=== PATIENT | female | born 1970 | race African-American/Black ===

== ENCOUNTER 2017-12-22 11:50 | Inpatient (IN) ==
--- NOTE | 2017-12-22 12:31 | ED ---
HPI General Chief Complaint: Chest Pain Stated Complaint: Chest Pain Time Seen by Provider: 12/22/17 12:13 History of Present Illness HPI narrative: The patient was seen and examined in the presence of the nurse. This patient complains of chest pain. Location is left center chest. Described as a burning and aching and a pressure. Duration is 30 minutes. Severity is moderate. No alleviating factors. No exacerbating factors. She has history of A. fib and diabetes, takes no blood thinners. Complete Quality Measures for STEMI Alert Patients Related Data Home Medications Medication Instructions Recorded Confirmed aspirin 81 mg PO DAILY 12/22/17 12/22/17 carbamazepine [Tegretol] 200 mg PO BID 12/22/17 12/22/17 insulin glargine [Lantus U-100 22 unit SUB-Q DAILY 12/22/17 12/22/17 Insulin] metformin 1,000 mg PO BID 12/22/17 12/22/17 phenytoin sodium extended 60 mg PO BID 12/22/17 12/22/17 [Dilantin] verapamil 180 mg PO DAILY 12/22/17 12/22/17 Allergies Allergy/AdvReac Type Severity Reaction Status Date / Time haloperidol [From Haldol] Allergy Difficulty Verified 12/22/17 12:04 Breathing Review of Systems ROS: all other systems reviewed are negative [facility] Medical History Medical History A-fib (Acute) Asthma (Acute) Bipolar 1 disorder (Acute) COPD (chronic obstructive pulmonary disease) (Acute) Diabetes (Acute) Hypertension (Acute) Schizophrenia (Acute) Seizures (Acute) Social History Social History Substance History: Active Abuse Smoking Status: Current every day smoker Tobacco Type: Cigarettes How Often Do You Have a Drink Containing Alcohol: Never Recent Travel in [facility] within the Last 8 Weeks: No Recent Out of Country Travel within the Last 8 Weeks: No Substance Abuse Detail Crack/Cocaine: Substance Use Status: Active Route Used Substance Abuse: Inhalation Substance Frequency: occasional Reason for Use: Curiosity Immunization History Tetanus Immunization: <5 Years Exam Narrative Exam Narrative: GENERAL: Morbidly obese , well-developed patient in no apparent distress. SKIN: Focused skin assessment reveals no rash and nodules. Skin is Warm and dry. HEAD: Atraumatic. Normocephalic. EYES: Pupils equal and round. No scleral icterus. No injection or drainage. ENT: No nasal bleeding or discharge. Mucous membranes pink and moist. NECK: Trachea midline. No JVD. CARDIOVASCULAR: Regular rate and rhythm. No murmur appreciated. RESPIRATORY: No accessory muscle use. Clear to auscultation. Breath sounds equal bilaterally. GASTROINTESTINAL: Abdomen soft, non-tender, nondistended. Hepatic and splenic margins not palpable. MUSCULOSKELETAL: No obvious deformities. No clubbing. No cyanosis. No edema. NEUROLOGICAL: Awake and alert. No obvious cranial nerve deficits. Motor grossly within normal limits. Normal speech. PSYCHIATRIC: Appropriate mood and affect; insight and judgment normal. Course Initial Documented Vital Signs Temperature 98.5 F 12/22/17 11:58 Pulse Rate 130 H 12/22/17 11:58 Respiratory Rate 24 12/22/17 11:58 Pulse Oximetry 97 12/22/17 11:58 Last Documented Vital Signs Temperature 98.5 F 12/22/17 11:58 Pulse Rate 123 H 12/22/17 13:48 Respiratory Rate 22 12/22/17 13:48 Blood Pressure 155/66 H 12/22/17 13:48 Pulse Oximetry 98 12/22/17 13:48 Critical Care Time Critical Care Time: Yes Total Critical Care Time: 35 Attestation: Aggregate critical care time was 35 minutes. Time to perform other separately billable procedures was not included in the critical care time. My time did not include minutes spent treating any other patients simultaneously or on activities that did not directly contribute to the patient's treatment. The services I provided to this patient were to treat and/or prevent clinically significant deterioration that could result in: Cardiopulmonary arrest, cardiac arrhythmia, myocardial damage I provided critical care services requiring my management, as noted below: Chart data review, documentation time, medication orders and management, vital sign assessments/reviewing monitor data, ordering and reviewing lab tests, ordering and interpreting/reviewing x-rays and diagnostic studies, care of the patient and discussion of the patient with the admitting physicians. Medical Decision Making MDM Narrative Medical decision making narrative: IV placed and labs sent. Patient arrives in A. fib with RVR. I gave an additional 20 mg IV Cardizem dose for rate control On recheck it is still in the 130s and has not helped I gave a second IV Cardizem dose of 20 mg I gave her an aspirin 162 mg Reviewed her EKG which shows A. fib with RVR but no acute ST elevation. I reviewed her chest x-ray and her troponin is normal. CK is 300 She denies coronary artery disease. She does have history of A. fib. She has multiple risk factors including obesity and hypertension and smoking. Patient will be a telemetry admission to the hospitalist. I have placed a call to them to discuss. She will need chest pain evaluation as well as rate control with A. fib with RVR. Medical Records Medical records reviewed: Yes I reviewed the patient's medical records. Lab Data Lab results reviewed: Yes I reviewed the patient's lab results. Result diagrams: 12/22/17 12:31 12/22/17 12:31 Lab Results 12/22/17 12/22/17 12/22/17 Range/Units 12:31 12:31 12:31 WBC 7.4 (4.0-11.0) th/mm3 RBC 4.32 (4.00-5.30) mil/mm3 Hgb 12.9 (11.6-15.3) gm/dL Hct 38.4 (35.0-46.0) % MCV 88.9 (80.0-100.0) fL MCH 29.9 (27.0-34.0) pg MCHC 33.6 (32.0-36.0) % RDW 13.6 (11.6-17.2) % Plt Count 278 (150-450) th/mm3 MPV 7.9 (7.0-11.0) fL Neut % (Auto) 49.1 (16.0-70.0) % Lymph % (Auto) 36.0 (9.0-44.0) % Mingo % (Auto) 10.3 H (0.0-8.0) % Eos % (Auto) 3.5 (0.0-4.0) % Baso % (Auto) 1.1 (0.0-2.0) % Neut # (Auto) 3.6 (1.8-7.7) th/mm3 Lymph # (Auto) 2.7 (1.0-4.8) th/mm3 Mingo # (Auto) 0.8 (0.0-0.9) th/mm3 Eos # (Auto) 0.3 (0.0-0.4) th/mm3 Baso # (Auto) 0.1 (0.0-0.2) th/mm3 WBC Differential . Differential Comment Auto diff final PT 10.0 (9.8-11.6) sec INR 1.0 Ratio APTT 25.4 (24.3-30.1) sec Sodium 140 (136-145) meq/L Potassium 4.2 (3.5-5.1) meq/L Chloride 108 H (98-107) meq/L Carbon Dioxide 23.1 (21.0-32.0) meq/L Anion Gap 9 (5-15) meq/L BUN 22 H (7-18) mg/dL Creatinine 1.23 H (0.50-1.00) mg/dL Estimated GFR 57 L (>89) mL/min POC Glucose (68-110) mg/dl Random Glucose 231 H (74-106) mg/dL Calcium 8.4 L (8.5-10.1) mg/dL Total Creatine Kinase (26-192) U/L CK-MB (CK-2) (0.5-3.6) ng/mL CK-MB (CK-2) % (0.0-4.0) % Troponin I (0.02-0.05) ng/mL 12/22/17 12/22/17 Range/Units 12:31 12:37 WBC (4.0-11.0) th/mm3 RBC (4.00-5.30) mil/mm3 Hgb (11.6-15.3) gm/dL Hct (35.0-46.0) % MCV (80.0-100.0) fL MCH (27.0-34.0) pg MCHC (32.0-36.0) % RDW (11.6-17.2) % Plt Count (150-450) th/mm3 MPV (7.0-11.0) fL Neut % (Auto) (16.0-70.0) % Lymph % (Auto) (9.0-44.0) % Mingo % (Auto) (0.0-8.0) % Eos % (Auto) (0.0-4.0) % Baso % (Auto) (0.0-2.0) % Neut # (Auto) (1.8-7.7) th/mm3 Lymph # (Auto) (1.0-4.8) th/mm3 Mingo # (Auto) (0.0-0.9) th/mm3 Eos # (Auto) (0.0-0.4) th/mm3 Baso # (Auto) (0.0-0.2) th/mm3 WBC Differential Differential Comment PT (9.8-11.6) sec INR Ratio APTT (24.3-30.1) sec Sodium (136-145) meq/L Potassium (3.5-5.1) meq/L Chloride (98-107) meq/L Carbon Dioxide (21.0-32.0) meq/L Anion Gap (5-15) meq/L BUN (7-18) mg/dL Creatinine (0.50-1.00) mg/dL Estimated GFR (>89) mL/min POC Glucose 228 H (68-110) mg/dl Random Glucose (74-106) mg/dL Calcium (8.5-10.1) mg/dL Total Creatine Kinase 300 H (26-192) U/L CK-MB (CK-2) 2.2 (0.5-3.6) ng/mL CK-MB (CK-2) % 0.7 (0.0-4.0) % Troponin I Less than 0.02 L (0.02-0.05) ng/mL Imaging Data Radiologist's impression: Chest X-Ray 12/22/17 12:27 CONCLUSION: No acute cardiopulmonary disease Discharge Plan Discharge Disposition Patient Disposition: 30 Still Patient Discharge Details Diagnosis: Chest pain in adult, Paroxysmal atrial fibrillation with rapid ventricular response Physicians Team ED Provider: Branden Rivera Primary Care Provider: UNKNOWN, Rxs /Orders / Referrals /Forms Prescriptions: No Action insulin glargine [Lantus U-100 Insulin] 100 unit/mL Solution 22 unit SUB-Q DAILY RF: 0 verapamil 180 mg Tablet Extended Release 180 mg PO DAILY RF: 0 carbamazepine [Tegretol] 200 mg Tablet 200 mg PO BID RF: 0 metformin 1,000 mg Tablet 1,000 mg PO BID RF: 0 aspirin 81 mg Tablet,Chewable 81 mg PO DAILY RF: 0 phenytoin sodium extended [Dilantin] 30 mg Capsule 60 mg PO BID RF: 0 Discharge Instructions Patient Printed Instructions: Chest Pain (ED) Discharge Interventions Interventions: Vital Signs Last Done: 12/22/17 12:11 Status ED Status: With Doctor
[2017-12-22 12:51] LABS: Baso # (Auto) 0.1 th/mm3 (0.0-0.2); Baso % (Auto) 1.1 % (0.0-2.0); Eos # (Auto) 0.3 th/mm3 (0.0-0.4); Eos % (Auto) 3.5 % (0.0-4.0); Hematocrit 38.4 % (35.0-46.0); Hemoglobin 12.9 gm/dL (11.6-15.3); Lymph # (Auto) 2.7 th/mm3 (1.0-4.8); Mean Corpuscular HGB Conc 33.6 % (32.0-36.0); Mean Corpuscular Hemoglobin 29.9 pg (27.0-34.0); Mean Corpuscular Volume 88.9 fL (80.0-100.0); Mean Platelet Volume 7.9 fL (7.0-11.0); Mono # (Auto) 0.8 th/mm3 (0.0-0.9); Mono % (Auto) 10.3 % (0.0-8.0); Neut # (Auto) 3.6 th/mm3 (1.8-7.7); Neut % (Auto) 49.1 % (16.0-70.0); Platelet Count 278 th/mm3 (150-450); Red Blood Count 4.32 mil/mm3 (4.00-5.30); Red Cell Distribution Width 13.6 % (11.6-17.2); White Blood Count 7.4 th/mm3 (4.0-11.0)
--- NOTE | 2017-12-22 12:56 | XR ---
EXAM DATE: 12/22/2017 12:52 PM EDT AGE/SEX: 47 years / Female INDICATIONS: Left sided chest pain and shortness of breath. CLINICAL DATA: This is the patient's initial encounter. Patient reports that signs and symptoms have been present for 1 day and indicates a pain score of 6/10. MEDICAL/SURGICAL HISTORY: Hypertension. Asthma. Chronic obstructive pulmonary disease. AFIB. Seizures. None. COMPARISON: No prior exams available for comparison. FINDINGS: A single AP view of the chest demonstrates the lungs to be symmetrically aerated without evidence of mass, infiltrate or effusion. The cardiomediastinal contours are unremarkable. Osseous structures a re intact. CONCLUSION: No acute cardiopulmonary disease Electronically signed by: Melo Best MD 12/22/2017 12:55 PM EDT
[2017-12-22 13:08] LABS: Activated Partial Thrombo Time 25.4 sec (24.3-30.1)
[2017-12-22 13:12] LABS: Calcium 8.4 mg/dL (8.5-10.1); Carbon Dioxide 23.1 meq/L (21.0-32.0); Potassium 4.2 meq/L (3.5-5.1)
[2017-12-22 13:16] LABS: Creatine Kinase 300 U/L (26-192)
[2017-12-22 13:28] LABS: CKMB Percent 0.7 % (0.0-4.0); Creatine Kinase MB 2.2 ng/mL (0.5-3.6)
[2017-12-22] MEDS ORDERED: Temazepam 15 MG Capsule PO PRN (16:30)
[2017-12-22] MEDS ORDERED: Bisacodyl 10 MG Supp RECTAL PRN (16:30)
[2017-12-22] MEDS ORDERED: Verapamil 120 MG Tablet PO SCH (17:00)
[2017-12-22] MEDS ORDERED: Dextrose 50% in Water 50 ML Vial IV.PUSH PRN (17:37)
[2017-12-22] MEDS ORDERED: Verapamil 120 MG Tablet PO ONE (17:50)
--- NOTE | 2017-12-22 17:54 | P.HPIM ---
History of Present Illness Primary Care Physician: UNKNOWN History of Present Illness: 47-year-old female with a history of atrial fibrillation, COPD, schizophrenia, diabetes who presents with intermittent burning nonradiating substernal chest pain since 11 AM, sometimes worse with a deep breath. She also reports shortness of breath since 11 AM. Patient says she has been stranded in [facility] for the past 5 days after her friend was arrested and got her car impounded. She has been without her medications including verapamil, and has been living outside of a gas station, eating from garbage can. She does report smoking a cigarette last night that smelled like cocaine. Patient is oriented 3, however says she knows nobody in the [facility] area. Get back to [facility] Inpatient Certification: I certify that the inpatient services were ordered in accordance with Medicare regulations governing the order. 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 - Medical History Medical History: Medical History (Last Updated 12/22/17 @ 17:43 by Murali Grimes MD) A-fib Asthma Bipolar 1 disorder COPD (chronic obstructive pulmonary disease) Diabetes Hypertension No significant past surgical history Schizophrenia Seizures - Family History Family History: Family History (Last Updated 12/22/17 @ 17:43 by Murali Grimes MD) Mother CAD (coronary artery disease) Father CAD (coronary artery disease) - Tobacco History Tobacco Use In Past 30 Days: Yes Smoking Status: Current every day smoker Tobacco Type: Cigarettes - Alcohol History How Often Do You Have a Drink Containing Alcohol: Never - Substance Use History Substance History: Active Abuse - Substance Use Type Crack/Cocaine Status: Active Route Used: Inhalation Frequency: occasional Reason for Use: Curiosity - Travel History Recent Travel in the [place] Within the Last 8 Weeks: No Recent Travel Out of the Country Within the Last 8 Weeks: No - Immunization History Tetanus Immunization: <5 Years Medications and Allergies Active Medications: Active Medications Al Hydroxide/Mg Hydroxide (Milk Of Magnesia Liq) 30 ml PO Q12H PRN PRN Reason: Mild Constipation Aspirin (Aspirin Chew) 81 mg PO DAILY [facility] Bisacodyl (Dulcolax Supp) 10 mg RECTAL DAILY PRN PRN Reason: SEVERE CONSITIPATION Carbamazepine (Tegretol) 200 mg PO BID [facility] Lactulose (Lactulose Liq) 30 ml PO DAILY PRN PRN Reason: SEVERE CONSITIPATION Phenytoin Sodium (Dilantin) 60 mg PO BID [facility] Sennosides (Senokot) 17.2 mg PO Q12H PRN PRN Reason: Moderate Constipation Sodium Chloride (Ns Flush) 2 ml IV.FLUSH UNSCH PRN PRN Reason: FLUSH AFTER USING IV ACCESS Temazepam (Restoril) 15 mg PO HS PRN PRN Reason: INSOMNIA Verapamil HCl (Isoptin) 120 mg PO TID [facility] Allergies Allergy/AdvReac Type Severity Reaction Status Date / Time haloperidol [From Haldol] Allergy Difficulty Verified 12/22/17 12:04 Breathing Home Medications Medication Instructions Recorded Confirmed Type aspirin 81 mg PO DAILY 12/22/17 12/22/17 History carbamazepine [Tegretol] 200 mg PO BID 12/22/17 12/22/17 History insulin glargine [Lantus U-100 22 unit SUB-Q DAILY 12/22/17 12/22/17 History Insulin] metformin 1,000 mg PO BID 12/22/17 12/22/17 History phenytoin sodium extended 60 mg PO BID 12/22/17 12/22/17 History [Dilantin] verapamil 180 mg PO DAILY 12/22/17 12/22/17 History Exam Vital signs: Vital Signs 12/22/17 11:58 12/22/17 12:11 12/22/17 12:44 Temperature 98.5 F Pulse Rate 130 H Respiratory Rate 24 Blood Pressure 138/73 Pulse Oximetry 97 97 12/22/17 13:48 12/22/17 16:04 Temperature Pulse Rate 123 H 118 H Respiratory Rate 22 18 Blood Pressure 155/66 H 132/88 Pulse Oximetry 98 98 Intake & Output 12/21/17 12/22/17 12/22/17 18:59 06:59 18:59 Weight 136.078 kg Narrative: GENERAL: Patient sitting up on edge of bed. Appears comfortable. She is alert and oriented 3. SKIN: Warm and dry. HEAD: Atraumatic. Normocephalic. EYES: Pupils equal and round. No scleral icterus. No injection or drainage. ENT: No nasal bleeding or discharge. Mucous membranes pink and moist. NECK: Trachea midline. No JVD. CARDIOVASCULAR: Tachycardic, irregularly irregular. No murmurs, rubs, gallops, clicks RESPIRATORY: No accessory muscle use. Clear to auscultation. Breath sounds equal bilaterally. GASTROINTESTINAL: Abdomen soft, non-tender, nondistended. Hepatic and splenic margins not palpable. MUSCULOSKELETAL: Extremities without clubbing, cyanosis, or edema. No obvious deformities. NEUROLOGICAL: Awake and alert. No obvious cranial nerve deficits. Motor grossly within normal limits. Five out of 5 muscle strength in the arms and legs. Normal speech. PSYCHIATRIC: Appropriate mood and affect; despite history of schizophrenia, insight and judgment normal. Results - Labs CBC & Chem 7: 12/22/17 12:31 12/22/17 12:31 Labs: Short CBC 12/22/17 Range/Units 12:31 WBC 7.4 (4.0-11.0) th/mm3 Hgb 12.9 (11.6-15.3) gm/dL Hct 38.4 (35.0-46.0) % Plt Count 278 (150-450) th/mm3 BMP 12/22/17 12:31 Sodium 140 Potassium 4.2 Chloride 108 H Carbon Dioxide 23.1 BUN 22 H Creatinine 1.23 H Calcium 8.4 L Cardiac Enzymes 12/22/17 Range/Units 12:31 Total Creatine Kinase 300 H (26-192) U/L CK-MB (CK-2) 2.2 (0.5-3.6) ng/mL Troponin I Less than 0.02 L (0.02-0.05) ng/mL - Imaging Impressions Chest X-Ray 12/22/17 12:27 CONCLUSION: No acute cardiopulmonary disease Caprini VTE Risk Assessment Caprini VTE Risk Assessment: No/Low Risk (score <= 1) Caprini Risk Assessment Model: Point Value = 1 Point Value = 2 Point Value = 3 Point Value = 5 Age 41-60 Minor surgery BMI > 25 kg/m2 Swollen legs Varicose veins or History of unexplained or recurrent spontaneous Oral contraceptives or hormone replacement Sepsis (< 1 month) Serious lung disease, including pneumonia (< 1 month) Abnormal pulmonary function Acute myocardial infarction Congestive heart failure (< 1 month) History of inflammatory bowel disease Medical patient at bed rest Age 61-74 Arthroscopic surgery Major open surgery (> 45 min) Laparoscopic surgery (> 45 min) Malignancy Confined to bed (> 72 hours) Immobilizing plaster cast Central venous access Age >= 75 History of VTE Family history of VTE Factor V Leiden Prothrombin [id number] Lupus anticoagulant Anticardiolipin antibodies Elevated serum homocysteine Heparin-induced thrombocytopenia Other congenital or acquired thrombophilia Stroke (< 1 month) Elective arthroplasty Hip, pelvis, or leg fracture Acute spinal cord injury (< 1 month) Prophylaxis Regimen: Total Risk Factor Score Risk Level Prophylaxis Regimen 0-1 Low Early ambulation 2 Moderate Order ONE of the following: *Sequential Compression Device (SCD) *Heparin 5000 units SQ BID 3-4 Higher Order ONE of the following medications: *Heparin 5000 units SQ TID *Enoxaparin/Lovenox 40 mg SQ daily (WT < 150 kg, CrCl > 30 mL/min) *Enoxaparin/Lovenox 30 mg SQ daily (WT < 150 kg, CrCl > 10-29 mL/min) *Enoxaparin/Lovenox 30 mg SQ BID (WT < 150 kg, CrCl > 30 mL/min) AND/OR *Sequential Compression Device (SCD) 5 or more Highest Order ONE of the following medications: *Heparin 5000 units SQ TID (Preferred with Epidurals) *Enoxaparin/Lovenox 40 mg SQ daily (WT < 150 kg, CrCl > 30 mL/min) *Enoxaparin/Lovenox 30 mg SQ daily (WT < 150 kg, CrCl > 10-29 mL/min) *Enoxaparin/Lovenox 30 mg SQ BID (WT < 150 kg, CrCl > 30 mL/min) AND *Sequential Compression Device (SCD) Assessment and Plan - Plan //Chest pain -Likely demand related secondary to atrial fibrillation with RVR, recent cocaine EKG with A. fib, RVR, left anterior fascicular block -Chest x-ray with no acute findings. Troponin 1 negative We will order CT pulmonary angiogram due to recent travel, pleuritic nature pain. = We will trend EKGs and troponins //A. fib RVR = Likely secondary to missing her verapamil, trying cocaine cigarette = We will restart patient's home dose of verapamil. Monitor on telemetry. //Diabetes mellitus. Will place on diabetic diet and insulin sliding scale. //History of schizophrenia Patient does not appear to have psychotic features at this time. Will continue home medications. Discussed Condition With: Patient, ED physician.
--- NOTE | 2017-12-22 20:45 | CT ---
EXAM DATE: 12/22/2017 8:30 PM EDT AGE/SEX: 47 years / Female INDICATIONS: Left sided chest pain today. CLINICAL DATA: This is the patient's initial encounter. Patient reports that signs and symptoms have been present for 1 day and indicates a pain score of 5/10. MEDICAL/SURGICAL HISTORY: Chronic obstructive pulmonary disease. Diabetes. Hypertension. None. RADIATION DOSE: 23.29 CTDI (mGy) ; Patient body habitus COMPARISON: No prior exams available for comparison. TECHNIQUE: Volumetric scanning was performed using a multi-row detector CT scanner during bolus infu claudia of 80 ml Omnipaque 350 (iohexol) nonionic water-soluble contrast as a single exam dose. The jennifer a was post processed with a variety of visualization algorithms including full volume maximum intensi ty projection and sliding thin slab reformation. Using automated exposure control and adjustment of the mA and/or kV according to patient size, radiation dose was kept as low as reasonably achievable t o obtain optimal diagnostic quality images. DICOM format image data is available electronically for review and comparison. FINDINGS: Pulmonary Arteries: No filling defects in the pulmonary arteries to suggest pulmonary embolus. Lung: Mild scarring or atelectasis in the right lower lobe inferiorly. Bronchial plugging is noted i n the right upper lobe. The lungs are otherwise clear. Effusion: None. Mediastinum: No evidence of mediastinal or hilar adenopathy. Coronary artery calcification is noted. Other: The axilla is unremarkable. Degenerative findings of the thoracic spine. CONCLUSION: 1. No evidence of pulmonary embolus. 2. Mild bronchial plugging in the right upper lobe. 3. Coronary artery calcification. Electronically signed by: Jadgish Fraser MD 12/22/2017 8:44 PM EDT
[2017-12-22] MEDS ORDERED: Insulin Detemir Inj 1,000 UNIT/10 ML Vial SQ SCH (21:00)
[2017-12-22] MEDS: Insulin Glargine Inj 1,000 UNITS/10 ML Vial SQ SCH (21:46)
[2017-12-22] MEDS: Insulin NovoLOG Aspart Correctional Sugar Inj SQ SCH (21:46)
[2017-12-22] MEDS: carBAMazepine 200 MG Tablet PO SCH (21:47)
[2017-12-23] MEDS: carBAMazepine 200 MG Tablet PO SCH ×2 (08:41→21:01)
[2017-12-23] MEDS: Insulin NovoLOG Aspart Correctional Sugar Inj SQ SCH ×4 (08:42→21:02)
--- NOTE | 2017-12-23 10:16 | P.PNCA ---
Physical Exam Vital signs: Vital Signs 12/22/17 11:58 12/22/17 12:11 12/22/17 12:44 Temperature 98.5 F Pulse Rate 130 H Respiratory Rate 24 Blood Pressure 138/73 Pulse Oximetry 97 97 12/22/17 13:48 12/22/17 16:04 12/22/17 17:44 Temperature 98.3 F Pulse Rate 123 H 118 H 123 H Respiratory Rate 22 18 20 Blood Pressure 155/66 H 132/88 139/86 Pulse Oximetry 98 98 97 12/22/17 18:26 12/22/17 20:00 12/23/17 00:00 Temperature 97.8 F 97.7 F Pulse Rate 109 H 119 H 94 H Respiratory Rate 16 18 18 Blood Pressure 145/84 H 137/78 Pulse Oximetry 100 99 12/23/17 00:53 12/23/17 04:00 12/23/17 04:33 Temperature 97.8 F Pulse Rate 111 H 77 82 Respiratory Rate 18 18 16 Blood Pressure 132/75 Pulse Oximetry 99 12/23/17 08:00 12/23/17 08:19 Temperature Pulse Rate 76 78 Respiratory Rate 20 Blood Pressure Pulse Oximetry 96 Intake & Output 12/22/17 12/23/17 12/23/17 18:59 06:59 18:59 Weight 151.8 kg 150.6 kg Other: Weight On Admission 151.8 kg Assessment and Plan - Plan See dictated note. Chest pain Given risk factors, will check cardiac enzymes, echo, and EKG. Currently, CP free. If workup negative can d/c with close f/up and social work services.
--- NOTE | 2017-12-23 13:59 | ECG ---
Date Performed: 12/23/2017 Time Performed: 13:37:22 PTAGE: 47 years EKG: Sinus rhythm RIGHT BUNDLE BRANCH BLOCK ABNORMAL ECG Compared to prior electrocardiogram, Sinus rhythm appears to have replaced probable atrial flutter. PREVIOUS TRACING : 12/22/2017 22.08 DOCTOR: Michael Contreras Interpretating Date/Time 12/23/2017 13:58:24
--- NOTE | 2017-12-23 14:35 | P.PNIM ---
Subjective Interval history: Nursing denies any deterioration since last night. Patient says the chest pain is gone at this time. Says her friend was driving her got arrested and has no other contact locally at this time. Has no Beckie Lesley, came down with a friend from [place]. Physical Exam Vital signs: Vital Signs 12/22/17 16:04 12/22/17 17:44 12/22/17 18:26 Temperature 98.3 F Pulse Rate 118 H 123 H 109 H Respiratory Rate 18 20 16 Blood Pressure 132/88 139/86 Pulse Oximetry 98 97 12/22/17 20:00 12/23/17 00:00 12/23/17 00:53 Temperature 97.8 F 97.7 F Pulse Rate 119 H 94 H 111 H Respiratory Rate 18 18 18 Blood Pressure 145/84 H 137/78 Pulse Oximetry 100 99 12/23/17 04:00 12/23/17 04:33 12/23/17 08:00 Temperature 97.8 F 97.6 F Pulse Rate 77 82 80 Respiratory Rate 18 16 20 Blood Pressure 132/75 131/68 Pulse Oximetry 99 100 12/23/17 08:19 12/23/17 11:33 12/23/17 12:00 Temperature 97.9 F Pulse Rate 78 80 76 Respiratory Rate 20 17 20 Blood Pressure 135/78 Pulse Oximetry 99 Intake & Output 12/22/17 12/23/17 12/23/17 18:59 06:59 18:59 Weight 151.8 kg 150.6 kg Other: Weight On Admission 151.8 kg Narrative: Heart sounds regular rate rhythm, no murmurs Lungs bilaterally, unlabored breathing Awake alert, interactive Results - Labs CBC & Chem 7: 12/22/17 12:31 12/22/17 12:31 Laboratory Results - last 24 hr 12/22/17 12/22/17 12/23/17 19:43 20:08 07:56 POC Glucose 236 H 180 H Troponin I Less than 0.02 L 12/23/17 12:45 POC Glucose 208 H Troponin I - Imaging Impressions Chest CTA 12/22/17 00:00 CONCLUSION: 1. No evidence of pulmonary embolus. 2. Mild bronchial plugging in the right upper lobe. 3. Coronary artery calcification. Assessment and Plan - Plan //Chest pain -Resolved -Likely demand related secondary to atrial fibrillation with RVR, recent cocaine EKG with A. fib, RVR, left anterior fascicular block. Discussed with cardiology, no further intervention at this time, monitor overnight and if echo and troponins are negative can be discharged tomorrow. -Chest x-ray with no acute findings. Troponin 2 negative CTA is negative for PE. //A. fib RVR = Improved = verapamil. //Diabetes mellitus. diabetic diet and insulin sliding scale. //History of schizophrenia Patient does not appear to have psychotic features at this time. Will continue home medications.
--- NOTE | 2017-12-23 16:40 | ECG ---
Date Performed: 12/22/2017 Time Performed: 12:39:06 PTAGE: 47 years EKG: ATRIAL FLUTTER/TACHYCARDIA WITH RAPID VENTRICULAR RESPONSE RIGHT BUNDLE BRANCH BLOCK LEFT A NTERIOR FASCICULAR BLOCK ABNORMAL ECG NO PREVIOUS TRACING DOCTOR: Trenton Cruz Interpretating Date/Time 12/23/2017 16:39:08
--- NOTE | 2017-12-23 16:41 | ECG ---
Date Performed: 12/22/2017 Time Performed: 22:08:38 PTAGE: 47 years EKG: ATRIAL FLUTTER/TACHYCARDIA WITH RAPID VENTRICULAR RESPONSE RIGHT BUNDLE BRANCH BLOCK LEFT A NTERIOR FASCICULAR BLOCK MODERATE T-WAVE ABNORMALITY, CONSIDER LATERAL ISCHEMIA MODERATE T-WAVE ABNOR MALITY, CONSIDER INFERIOR ISCHEMIA ABNORMAL ECG Since the PREVIOUS TRACING , no significant change noted PREVIOUS TRACIN12/22/2017 12.39 DOCTOR: Trenton Cruz Interpretating Date/Time 12/23/2017 16:39:38
--- NOTE | 2017-12-23 17:01 | MB ---
cc: Francisco Louise MD DATE: 12/23/2017 REFERRING PHYSICIAN: Dr. Grimes. CHIEF COMPLAINTS: Chest pain, atrial flutter. HISTORY OF PRESENT ILLNESS: Abi Beyer is a very pleasant 47-year-old female with past medical history of atrial fibrillation/atrial flutter - on verapamil, COPD, schizophrenia, and diabetes, who presented with substernal chest discomfort, which began yesterday. On the interview of the patient, she reports that she currently lives in [place] and took a road trip with one of her friends, who unfortunately got arrested and subsequently she has been living homeless. She does admit to ingesting cocaine and also reports that she has run out of medications currently. She reports that her substernal chest discomfort has dissipated. She does report that there is a family history of coronary artery disease with her mother and father. She does not have an established induction coordination engineer here in the [facility]. She was restarted on her home dose of verapamil and currently she has gone from what was likely atrial flutter to a normal sinus rhythm. Her troponins have been negative x2. She also had a CT of the chest, which did not show any pulmonary embolism, some mild bronchial plugging of the right upper lobe, and coronary artery calcification. REVIEW OF SYSTEMS: A 12-point review of systems otherwise negative, except as mentioned in the HPI. PAST MEDICAL HISTORY: 1. Atrial fibrillation/flutter. 2. Asthma. 3. Bipolar. 4. Chronic obstructive pulmonary disease. 5. Diabetes. 6. Hypertension. 7. Schizophrenia. 8. Seizures. SOCIAL HISTORY: The patient is an every-day smoker and does admit to illicit drug use. FAMILY HISTORY: She does have a family history of myocardial infarction in her mother and father. No sudden cardiac . MEDICATIONS: Reviewed in the electronic medical record. ALLERGIES: REVIEWED IN THE ELECTRONIC MEDICAL RECORD. PHYSICAL EXAMINATION: VITAL SIGNS: Blood pressure 122/64, heart rate 72. GENERAL: Comfortable, in no acute distress. HEENT: Eyes: No scleral icterus. Oropharynx: Moist mucous membranes. CARDIOVASCULAR: Regular rate and rhythm. S1, S2. No murmurs, rubs, or gallops. LUNGS: Clear to auscultation. ABDOMEN: Soft, nontender. Bowel sounds present. EXTREMITIES: No significant edema. NEUROLOGIC: She is A and O x3. LABORATORY DATA: Reviewed in electronic medical record. She has 2 sets of troponins, which have been negative. DIAGNOSTIC DATA: EKG shows sinus rhythm. ASSESSMENT: 1. Chest pain. 2. Atrial fibrillation/flutter. 3. CHADS-VASc score of 2. 4. Hypertension. 5. Diabetes. PLAN: Given the patient's risk factors, I would like to trend her troponins and once the troponins are negative, I would like to proceed with a transthoracic echocardiogram. With regards to her atrial arrhythmia, given the history of compliance, I think it would be reasonable to continue aspirin 81 mg. We did discuss increased risk of stroke and that she would need to follow up closely to discuss further placement of a NOAC, given her risk factors for stroke. The patient did verbalize understanding and communicated that she would follow up very closely with her local doctor. In the interim, I will also order a transthoracic echocardiogram to evaluate LV function. These recommendations were communicated with the patient, as well as Dr. Luong. Thank you for allowing me to participate in the care of Ms. Abi Beyer. Please feel free to contact me with any further questions regarding her care. MD LEVY Mccoy/luis , 02:28 PM , 02:40 PM
[2017-12-23] MEDS: Insulin Glargine Inj 1,000 UNITS/10 ML Vial SQ SCH (19:13)
[2017-12-23] MEDS: Budesonide-Formoterol 80/4.5 MCG 6.9 GM Inhaler INH SCH (21:01)
[2017-12-23] MEDS: Insulin Detemir Inj 1,000 UNIT/10 ML Vial SQ SCH (21:02)
[2017-12-24] MEDS: carBAMazepine 200 MG Tablet PO SCH ×2 (09:36→20:35)
[2017-12-24] MEDS: Budesonide-Formoterol 80/4.5 MCG 6.9 GM Inhaler INH SCH ×2 (09:37→20:35)
[2017-12-24] MEDS: Insulin NovoLOG Aspart Correctional Sugar Inj SQ SCH ×4 (09:37→20:36)
[2017-12-24] MEDS: Insulin Detemir Inj 1,000 UNIT/10 ML Vial SQ SCH ×2 (10:02→20:35)
--- NOTE | 2017-12-24 13:18 | ECHRPT ---
Indication: CHEST PAIN CONCLUSIONS Normal left ventricular size. Normal wall motion. Mild concentric left ventricular hypertrophy. The left ventricular systolic function is hyperdynamic with an estimated ejection fraction in the ra nge of 65- 70%. Mild to moderate mitral annular calcification is present. Gvtms-ko-stps mitral valve regurgitation. There is mild tricuspid valve regurgitation. The estimated pulmonary arterial pressure is 32 mmHg. BP: / HR: Rhythm: Technical Quality: FINDINGS LEFT VENTRICLE Normal left ventricular size. Normal wall motion. Mild concentric left ventricular hypertrophy. The left ventricular systolic function is hyperdynamic with an estimated ejection fraction in the ra nge of 65- 70%. RIGHT VENTRICLE Normal right ventricular size and systolic function. LEFT ATRIUM The left atrial size is normal. RIGHT ATRIUM The right atrial size is normal. ATRIAL SEPTUM Normal atrial septal thickness without atrial level shunting by limited color doppler interrogation. AORTA The aortic root and proximal ascending aorta are normal in size on limited imaging. MITRAL VALVE Mild to moderate mitral annular calcification is present. Aeect-uc-amen mitral valve regurgitation. AORTIC VALVE Trileaflet aortic valve. No aortic valve stenosis or regurgitation. TRICUSPID VALVE There is mild tricuspid valve regurgitation. The estimated pulmonary arterial pressure is 32 mmHg. PULMONARY VALVE The pulmonary valve is not well visualized. VESSELS The inferior vena cava is normal in size. PERICARDIUM No pericardial effusion. Juaquin Melendez MD (Electronically Signed) Final Date:24 December 2017 13:16
--- NOTE | 2017-12-24 14:39 | P.DS ---
Date of admission: 12/22/17 16:43 Primary care physician: UNKNOWN Brief History from admission: 47-year-old female with a history of atrial fibrillation, COPD, schizophrenia, diabetes who presents with intermittent burning nonradiating substernal chest pain since 11 AM, sometimes worse with a deep breath. She also reports shortness of breath since 11 AM. Patient says she has been stranded in [facility] for the past 5 days after her friend was arrested and got her car impounded. She has been without her medications including verapamil, and has been living outside of a gas station, eating from garbage can. She does report smoking a cigarette last night that smelled like cocaine. Patient is oriented 3, however says she knows nobody in the [place] [facility] area. Get back to [facility] DS: Diagnosis - Discharge Diagnosis (1) Chest pain in adult Status: Acute DS: Summary Hospital Course: After patient was admitted, chest pain shortly resolved. Cardiology was consulted. Echocardiogram was performed which was unremarkable. Enzymes are trended negative. Patient was cleared for discharge from cardiology standpoint. Patient was originally being discharged on 12/24, however she verbalized suicidal ideation at one point due to stress from family members. Psychiatry had been consulted and found that the patient denies suicidal ideation, and did not meet criteria for involuntary hospitalization. Patient has been maximal benefit from hospitalization and is stable for discharge on . - Time Spent with Patient Total time spent providing and/or coordinating discharge services: Less than 30 minutes - Quality: VTE Deep Vein Thrombosis/Pulmonary Embolism Present on Admission: No Exam Vital signs: Vital Signs 12/23/17 15:35 12/23/17 16:00 12/23/17 19:59 Temperature 97.3 F L Pulse Rate 78 86 86 Respiratory Rate 20 20 16 Blood Pressure 121/73 Pulse Oximetry 100 98 12/23/17 20:00 12/23/17 23:56 12/24/17 00:00 Temperature 98.3 F Pulse Rate 81 81 75 Respiratory Rate 20 16 Blood Pressure 158/97 H Pulse Oximetry 95 12/24/17 04:00 12/24/17 04:10 12/24/17 08:00 Temperature 97.8 F 97.7 F Pulse Rate 75 82 73 Respiratory Rate 18 16 18 Blood Pressure 147/73 H 127/82 Pulse Oximetry 95 95 12/24/17 10:06 12/24/17 12:00 Temperature 98.1 F Pulse Rate 79 Respiratory Rate 18 Blood Pressure 139/83 Pulse Oximetry 95 98 Intake & Output 12/23/17 12/24/17 12/24/17 18:59 06:59 18:59 Weight 150.3 kg Narrative: Date of exam: 12/24 Heart sounds regular rate rhythm, no murmurs Pt overheard crying Date of exam: 12/24 clear lungs BL, appropriate mood and affect today, not tearful Results Procedures completed during hospitalization: . Labs on day of discharge: Labs from last 24 hours 12/24/17 12/24/17 12/23/17 13:36 07:55 19:44 POC Glucose 190 H 175 H 205 H 12/23/17 17:55 POC Glucose 185 H - Impressions ITS Impressions Chest CTA 12/22/17 00:00 CONCLUSION: 1. No evidence of pulmonary embolus. 2. Mild bronchial plugging in the right upper lobe. 3. Coronary artery calcification. Chest X-Ray 12/22/17 12:27 CONCLUSION: No acute cardiopulmonary disease Discharge Plan - Discharge Disposition Patient Disposition: 01 Discharge Home - Discharge Condition Condition: Stable - Discharge Order Discharge Orders: Discharge Order (Routine); Ordered 12/25/17 Ordered By: Jose G Luong - Physicians Team Primary Care Provider: UNKNOWN, Attending Provider: Jose G Luong Other Providers: Daniel Myers MD ; Norman Louise MD
[2017-12-24 16:20] LABS: Creatine Kinase 179 U/L (26-192)
[2017-12-24 16:32] LABS: Creatine Kinase MB 1.8 ng/mL (0.5-3.6)
[2017-12-25] MEDS: Insulin NovoLOG Aspart Correctional Sugar Inj SQ SCH ×2 (08:41→12:55)
[2017-12-25] MEDS: carBAMazepine 200 MG Tablet PO SCH (08:42)
[2017-12-25] MEDS: Insulin Detemir Inj 1,000 UNIT/10 ML Vial SQ SCH (08:43)
[2017-12-25] MEDS: Budesonide-Formoterol 80/4.5 MCG 6.9 GM Inhaler INH SCH (10:15)
--- NOTE | 2017-12-25 11:26 | P.PN ---
Subjective Interval history: Nursing denies any deterioration since last night. Patient says she feels okay today. Physical Exam Vital signs: Vital Signs 12/24/17 12:00 12/24/17 16:00 12/24/17 17:41 Temperature 98.1 F 98.4 F Pulse Rate 89 88 Respiratory Rate 18 18 Blood Pressure 139/83 182/80 H Pulse Oximetry 98 95 95 12/24/17 20:00 12/25/17 00:00 12/25/17 03:46 Temperature 98.3 F 98 F 97.7 F Pulse Rate 78 75 79 Respiratory Rate 18 16 19 Blood Pressure 162/68 H 156/90 H 168/99 H Pulse Oximetry 95 100 99 12/25/17 04:00 12/25/17 08:00 Temperature 97.8 F Pulse Rate 76 70 Respiratory Rate 17 Blood Pressure 151/81 H Pulse Oximetry 95 Intake & Output 12/24/17 12/25/17 12/25/17 18:59 06:59 18:59 Intake Total 720 / 720 480 / 480 Balance 720 / 720 480 / 480 Weight 149.6 kg Intake: Oral 720 / 720 480 / 480 Other: # Voids 2 4 Narrative: Unlabored breathing, appropriate mood and affect today. Results - Labs CBC & Chem 7: 12/22/17 12:31 12/22/17 12:31 Laboratory Results - last 24 hr 12/24/17 12/24/17 12/24/17 13:36 15:10 17:26 POC Glucose 190 H 211 H Total Creatine Kinase 179 CK-MB (CK-2) 1.8 Troponin I Less than 0.02 L 12/24/17 12/25/17 19:37 08:30 POC Glucose 213 H 144 H Total Creatine Kinase CK-MB (CK-2) Troponin I - Procedures . Assessment and Plan - Assessment (1) Chest pain in adult Code(s): R07.9 - Chest pain, unspecified Status: Acute - Plan No further workup warranted at this time. Patient being discharged.
--- NOTE | 2017-12-25 12:42 | P.CONPSY ---
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 [place] III.: Hypertension, diabetes, Afib History of Present Illness Service: Medicine Primary Care Provider: UNKNOWN History of Present Illness: The patient is a 47-year-old -[place] woman, single, domiciled alone in [place], mother of 2 adult kids, unemployed, supported by [facility], with a psychiatric history of schizophrenia, multiple psychiatric hospitalizations, suicide attempts, self cutting behavior, last hospitalization was last year in a [place] [facility], she is on Zyprexa 10 mg at bedtime, with a medical history of atrial fibrillation, COPD, diabetes who presents with intermittent burning nonradiating substernal chest pain since 11 AM, sometimes worse with a deep breath. She also reports shortness of breath since 11 AM. Patient says she has been stranded in [facility] for the past 5 days after her friend was arrested and got her car impounded. Patient was consulted to psychiatry because she has expressed suicidal ideation and Coughlin acted in the medical floor. Apparently, the patient was about to be discharged yesterday, she called her daughter in [place] to come and pick her up and the daughter was very upset with the patient and the patient expressed SI on the frustration. Today for psychiatric evaluation the patient is calm, cooperative, she seems to be very concrete with limited obstruction. She says that she feels much better, she is awaiting to get a bus pass to go back to [place]. She reports okay mood, denies symptoms of depression, denies anhedonia, denies hopelessness, denies tenderness, she denies suicidal and homicidal ideation, she denies visual and auditory hallucinations. 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 Patient says that, as long as she is going back to [place], she will be ok. She says that she has history of schizophrenia, she has been stable in current psychotropic regimen, she has an outpatient psychiatrist in [place], her last hospitalization was a year ago. She is fully oriented 3, no attention deficit, no filtration of consciousness present. She does have a concrete form of thinking and seems to be quite limited, but she is logical, coherent and relevant. Review of Systems Constitutional: Denies anorexia, Denies body ache(s), Denies chills, Denies daytime sleepiness, Denies excessive sweating, Denies fatigue, Denies fever(s), Denies headache(s), Denies increased appetite, Denies lack of energy, Denies malaise, Denies night sweats, Denies weakness, Denies weight gain, Denies weight loss, Denies other Eyes: Denies blind spots, Denies blurry vision, Denies bulging eyes, Denies change in vision, Denies double vision, Denies discharge, Denies dry eyes, Denies floaters, Denies irritation, Denies itchy eyes, Denies loss of vision, Denies pain, Denies requires corrective lenses, Denies sensitivity to light, Denies other Ears, Nose, Mouth, and Throat: Denies abnormal hearing, Denies bleeding gums, Denies bad breath, Denies change in voice, Denies dental pain, Denies difficulty swallowing, Denies dizziness, Denies dry mouth, Denies ear discharge , Denies ear pain, Denies facial pain, Denies headache(s), Denies hearing loss, Denies hoarseness, Denies lip swelling, Denies nosebleed, Denies mouth lesions, Denies mouth pain, Denies nasal congestion, Denies nasal discharge, Denies nasal obstruction, Denies nasal trauma, Denies neck lump, Denies neck pain, Denies nose pain, Denies pain with swallowing, Denies poor balance, Denies post nasal drip, Denies ringing in the ears, Denies sinus pain, Denies sinus pressure , Denies sore throat, Denies throat swelling, Denies tongue swelling, Denies other Cardiovascular: Denies chest pain, Denies chest pain at rest, Denies chest pain with activity, Denies excessive sweating, Denies fainting, Denies fast heart rate, Denies foot swelling, Denies generalized swelling, Denies irregular heart rhythm, Denies leg pain with activity, Denies leg sores, Denies leg swelling, Denies lightheadedness, Denies radiating jaw, neck or arm pain, Denies rapid, pounding, or irregular heartbeat, Denies shortness of breath, Denies shortness of breath with activity, Denies shortness of breath when lying down, Denies shortness of breath causing sudden awakening, Denies slow heart rate, Denies other Respiratory: Denies change in phlegm color, Denies chest congestion, Denies cough, Denies coughing up blood, Denies excessive phlegm production, Denies pain on inspiration, Denies pain with cough, Denies shortness of breath, Denies shortness of breath with activity, Denies snoring, Denies stridor, Denies wheezing, Denies other Gastrointestinal: Denies abdominal pain, Denies belching, Denies black, tarry stools, Denies bloating, Denies bright, red blood in stools, Denies change in bowel habits, Denies constant urge to pass stool, Denies change in stools, Denies coffee ground vomit, Denies constipation, Denies cramping, Denies difficulty swallowing, Denies excessive passing of gas, Denies feeling full early, Denies heartburn, Denies incontinent of stools, Denies loose stools, Denies nausea, Denies pain with swallowing, Denies vomiting, Denies vomiting blood, Denies other Genitourinary: Denies abnormal periods, Denies abnormal vaginal bleeding, Denies absent period, Denies bleeding between periods, Denies blood in urine, Denies difficulty starting urination, Denies difficulty urinating, Denies dribbling after urination, Denies frequent nighttime urination, Denies genital itching, Denies genital lesions, Denies heavy periods, Denies hot flashes, Denies light periods, Denies nipple discharge, Denies painful intercourse, Denies painful periods, Denies painful urination, Denies pelvic pain, Denies prolapse symptoms, Denies sexual problems, Denies side pain, Denies urinary incontinence, Denies urinary urgency, Denies vaginal discharge, Denies vaginal dryness, Denies vaginal odor, Denies vaginal itching, Denies other Musculoskeletal: Denies abnormal walking, Denies back pain, Denies body aches, Denies decreased muscle mass, Denies deformity, Denies joint pain, Denies joint swelling, Denies limited joint movement, Denies loss of height, Denies muscle cramps, Denies muscle weakness, Denies neck pain, Denies numbness, Denies radiating pain into limb, Denies stiffness, Denies tingling, Denies other Neurologic: Denies abnormal hearing, Denies abnormal movements, Denies abnormal speech, Denies abnormal walking, Denies behavioral changes, Denies burning sensations, Denies confusion, Denies dizziness, Denies fainting, Denies frequent falls, Denies headache(s), Denies lack of coordination, Denies localized weakness, Denies loss of vision, Denies memory loss, Denies numbness, Denies other visual disturbances, Denies radiating pain, Denies restless legs, Denies convulsions, Denies seizure-like activity, Denies sensory deficit, Denies tingling, Denies tingling/numbness/burning sensations, Denies tremor(s), Denies unsteadiness, Denies weakness, Denies other Psychiatric: Denies abnormal sleep pattern, Denies anxiety, Denies behavioral changes, Denies change in appetite, Denies change in sex drive, Denies confusion , Denies depression, Denies difficulty concentrating, Denies hearing things others do not hear, Denies hopelessness, Denies irritability, Denies lack of enjoyment, Denies memory loss, Denies mood swings, Denies panic attacks, Denies paranoia, Denies seeing things others do not see, Denies sensing things others do not sense, Denies tactile hallucinations, Denies thoughts of hurting/killing others, Denies thoughts of hurting/killing yourself, Denies other PMFSH - History History Provided By: Patient - Medical History Medical History: Medical History (Last Reviewed 12/22/17 @ 18:33 by April Myers RN) A-fib Asthma Bipolar 1 disorder COPD (chronic obstructive pulmonary disease) Diabetes Hypertension No significant past surgical history Schizophrenia Seizures - Family History Family History: Family History (Last Updated 12/22/17 @ 17:43 by Murali Grimes MD) Mother CAD (coronary artery disease) Father CAD (coronary artery disease) - Tobacco History Second Hand Smoke Exposure: No Tobacco Use In Past 30 Days: Yes Smoking Status: Current every day smoker Tobacco Type: Cigarettes - Alcohol History How Often Do You Have a Drink Containing Alcohol: Monthly or less - Substance Use History Substance History: Active Abuse - Substance Use Type Crack/Cocaine Status: Active Route Used: By Mouth, Inhalation Frequency: once Reason for Use: Curiosity Comment: patient states she smoked one cigarette laced with cocaine last night - Travel History Recent Travel in the [facility] Within the Last 8 Weeks: No Recent Travel Out of the Country Within the Last 8 Weeks: No - Immunization History Tetanus Immunization: <5 Years Hx Influenza Vaccine This Season: Yes Medications and Allergies Active Medications: Active Medications Al Hydroxide/Mg Hydroxide (Milk Of Magnesia Liq) 30 ml PO Q12H PRN PRN Reason: Mild Constipation Albuterol (Duoneb Neb (Prn)) 1 ampul NEB Q4HR NEB PRN PRN Reason: SHORTNESS OF BREATH/WHEEZING Last Admin: 12/24/17 04:09 Dose: 1 ampul Aspirin (Aspirin Chew) 81 mg PO DAILY [facility] Last Admin: 12/25/17 08:42 Dose: 81 mg Bisacodyl (Dulcolax Supp) 10 mg RECTAL DAILY PRN PRN Reason: SEVERE CONSITIPATION Budesonide/Formoterol Fumarate (Symbicort 80/4.5 Mcg Inh) 2 puff INH BID [facility] Last Admin: 12/25/17 10:15 Dose: 2 puff Carbamazepine (Tegretol) 200 mg PO BID [facility] Last Admin: 12/25/17 08:42 Dose: 200 mg Dextrose (D50w Vial) 50 ml IV.PUSH UNSCH PRN PRN Reason: PER HYPOGLYCEMIA PROTOCOL Glucagon (Glucagon Inj) 1 mg OTHER PRN PRN PRN Reason: for Hypoglycemia Protocol Insulin Aspart (Novolog Insulin Correctional Sugar Inj) 0 unit SQ [facility]; Protocol Last Admin: 12/25/17 08:41 Dose: Not Given Insulin Detemir (Levemir Inj) 5 unit SQ BID [facility] Last Admin: 12/25/17 08:43 Dose: 5 unit Lactulose (Lactulose Liq) 30 ml PO DAILY PRN PRN Reason: SEVERE CONSITIPATION Phenytoin Sodium (Dilantin) 60 mg PO BID [facility] Last Admin: 12/25/17 08:42 Dose: 60 mg Sennosides (Senokot) 17.2 mg PO Q12H PRN PRN Reason: Moderate Constipation Sodium Chloride (Ns Flush) 2 ml IV.FLUSH UNSCH PRN PRN Reason: FLUSH AFTER USING IV ACCESS Last Admin: 12/25/17 08:41 Dose: 2 ml Temazepam (Restoril) 15 mg PO HS PRN PRN Reason: INSOMNIA Verapamil HCl (Isoptin Sr) 180 mg PO DAILY [facility] Last Admin: 12/25/17 08:42 Dose: 180 mg Allergies Allergy/AdvReac Type Severity Reaction Status Date / Time haloperidol [From Haldol] Allergy Difficulty Verified 12/22/17 12:04 Breathing Home Medications Medication Instructions Recorded Confirmed Type aspirin 81 mg PO DAILY 12/22/17 12/22/17 History carbamazepine [Tegretol] 200 mg PO BID 12/22/17 12/22/17 History insulin glargine [Lantus U-100 22 unit SUB-Q DAILY 12/22/17 12/22/17 History Insulin] metformin 1,000 mg PO BID 12/22/17 12/22/17 History phenytoin sodium extended 60 mg PO BID 12/22/17 12/22/17 History [Dilantin] verapamil 180 mg PO DAILY 12/22/17 12/22/17 History Exam Vital signs: Vital Signs 12/24/17 16:00 12/24/17 17:41 12/24/17 20:00 Temperature 98.4 F 98.3 F Pulse Rate 88 78 Respiratory Rate 18 18 Blood Pressure 182/80 H 162/68 H Pulse Oximetry 95 95 95 12/25/17 00:00 12/25/17 03:46 12/25/17 04:00 Temperature 98 F 97.7 F Pulse Rate 75 79 76 Respiratory Rate 16 19 Blood Pressure 156/90 H 168/99 H Pulse Oximetry 100 99 12/25/17 08:00 Temperature 97.8 F Pulse Rate 70 Respiratory Rate 17 Blood Pressure 151/81 H Pulse Oximetry 95 Intake & Output 12/24/17 12/25/17 12/25/17 18:59 06:59 18:59 Intake Total 720 / 720 480 / 480 Balance 720 / 720 480 / 480 Weight 149.6 kg Intake: Oral 720 / 720 480 / 480 Other: # Voids 2 4 Narrative: No tremors, no EPS, no psychomotor agitation or retardation, Mental Status Examination Appearance: Appropriate Consciousness: Alert Orientation: x4 Motor Activity: Normal gait Speech: Unremarkable Language: Adequate Fund of Knowledge: Adequate Attention and Concentration: Adequate Memory: Unremarkable Mood: Appropriate Affect: Appropriate Thought Process & Associations: Other (concrete) Thought Content: Appropriate Hallucination Type: None Delusion Type: None Suicidal Ideation: No Suicidal Plan: No Suicidal Intention: No Homicidal Ideation: No Homicidal Plan: No Homicidal Intention: No Insight: Fair Judgment: Impulsive Assessment and Plan - Assessment (1) Adjustment disorder Code(s): F43.20 - Adjustment disorder, unspecified Status: Acute - Plan Plan: On psychiatric evaluation today I find a patient that is initially oppositional and a little bit agreeable, with concrete thought process, but able to deny symptomatology of depression, anxiety, luis alberto, psychosis. The patient denies suicidal and homicidal ideation, she denies visual and auditory hallucinations. The patient has a psychiatric history of schizophrenia, bipolar disorder, multiple psychiatric admissions, last admission about a year ago in [place], outpatient psychiatric care, the patient is on olanzapine 10 mg at bedtime which she has been stable. She also has previous suicide attempts and self cutting behavior without SI. Recent suicidal expression in the hospital was most probably secondary to the frustration and the fact that she has no way to go back to [place] at this moment. So, suicidality was most probably manipulative and conditioned. Patient might have some mild to moderate intellectual disability which might increase the risk of aggressive behavior in the medical floor, but she does not meet criteria for involuntary psychiatric admission this moment. I will restart her olanzapine 10 mg at bedtime. food prep worker intervention to assure a safe discharge. Justification for Continued Inpatient Stay: No admission indicated. Coughlin act lifted
[2017-12-25 12:57] VITALS: RESP 18; TEMP 97.9; O2SAT 94
[2017-12-25 13:19] VITALS: PULSE 96
[2017-12-25 14:02] VITALS: BP 170/90
[2017-12-25] MEDS ORDERED: OLANZapine 10 MG ODT Tablet PO SCH (21:00)
== END 2017-12-25 14:22 | disposition home or self-care (01) ==
LOC: NEPC 11:50 → NEDA 16:43 → N04 17:41
PROVIDERS: ADMIT Hospitalist; ATTEND Hospitalist